=== PATIENT | male | born 1990 | race Caucasian/White ===

== ENCOUNTER 2016-06-09 23:46 | Emergency (ER) | payer SELFPAY ==
--- NOTE | ~2016-06-09 | CT99 ---
[facility] A Service of [facility] RADIOLOGY TEXT RESULTS PATIENT: FOSTER MILLER LOCATION: SED : [birth year] UNIT #: [id number] AGE: [address]: Patrick Wu MD SEX: M ORDER DR: [id number] [address] [address] [id number] E MR#: [id number] Acc #: [id number] NAME: FOSTER MILLER : 1990 SEX: M STUDY DATE/TIME: 06/10/2016 1:30 UNIT: SED ROOM: STUDY DESCRIPTION: CT Maxillofacial Area W Cont Attending Physician: Patrick Wu M.D. Ordering Physician: Patrick Wu M.D. Primary Care Physician: Primary Care Physician No MEDICAL IMAGING REPORT This report is preliminary unless electronic signature is present. EXAM CT maxillofacial with IV contrast COMPARISON None INDICATION 26-year-old male with right-sided forehead swelling of acute onset yesterday morning. TECHNIQUE This CT exam was performed with one or more of the following radiation dose reduction techniques: automatic exposure control, adjustment of mA and/or kV according to patient size, and iterative reconstruction. FINDINGS Axial CT imaging of the facial bones was performed after administration of 100 mL of IV 370. Coronal reformats were constructed. There is mild asymmetric subcutaneous fat stranding over the right frontal bone which may extend minimally down into the right preseptal soft tissues. There is no evidence of associated abscess. There is no subcutaneous gas. Visualized airways widely patent. Visualized intracranial arteries appear within normal limits. The visualized cervical carotid arteries appear within normal limits. No bulky adenopathy within the visualized neck. There is a large mucus retention cyst versus polyp of the left maxillary sinus with a small to moderate mucus retention cyst versus polyp of the right maxillary sinus. Mild mucosal thickening of ethmoid air cells. Visualized mastoid air cells and middle ears are well-aerated. No acute fractures or suspicious osseous lesions. IMPRESSION 1. Subcutaneous fat stranding over the right anterior frontal bone without associated abscess. Findings likely reflect acute STS. [facility] A Service of [facility] RADIOLOGY TEXT RESULTS PATIENT: FOSTER MILLER LOCATION: SED : 92 UNIT #: [id number] AGE: [address]: Patrick Wu MD SEX: M ORDER DR: cellulitis. Findings may extend minimally into the preseptal soft tissues over the right orbit. There is no evidence of intraorbital extension. No subcutaneous gas. 2. Mucus retention cysts versus polyps of the maxillary sinuses. Dictated by... Terence Hair M.D. THIS IS AN ELECTRONICALLY VERIFIED REPORT Terence Hair M.D. at 06/13/2016 8:28 PM Alexis TD: 06/10/2016 09:41 JOB #: [id number] MEDICAL IMAGING REPORT
--- NOTE | ~2016-06-09 | CT71 ---
[facility] A Service [facility] RADIOLOGY TEXT RESULTS PATIENT: FOSTER MILLER LOCATION: SED : [birth year] UNIT #: [id number] AGE: [address]: Patrick Wu MD SEX: M ORDER DR: [id number] [place] [id number] E MR#: [id number] Acc #: [id number] NAME: FOSTER MILLER : 1990 SEX: M STUDY DATE/TIME: 06/10/2016 1:26 UNIT: SED ROOM: STUDY DESCRIPTION: CT Head Wo Contrast Attending Physician: Patrick Wu M.D. Ordering Physician: Patrick Wu M.D. Primary Care Physician: Primary Care Physician No MEDICAL IMAGING REPORT This report is preliminary unless electronic signature is present. EXAM CT head without IV contrast COMPARISON None INDICATION 26-year-old male with headache, blurred vision and dizziness as well as right-sided forehead swelling since this morning. TECHNIQUE This CT exam was performed with one or more of the following radiation dose reduction techniques: automatic exposure control, adjustment of mA and/or kV according to patient size, and iterative reconstruction. FINDINGS There is a small amount of diffuse fat stranding in the subcutaneous tissues overlying the right frontal bone. No evidence of associated organizing fluid collection. There is mild mucosal thickening of the ethmoid air cells and likely within the left maxillary sinus as well, incompletely imaged. Similarly, there is mild mucosal thickening of the sphenoid sinus. There are no paranasal sinus air-fluid levels seen on this exam. Visualized mastoid air cells and middle ears are well-aerated. No acute fractures or suspicious osseous lesions. No focal osseous destruction. Normal cerebral volume. No abnormal extraaxial fluid collection or mass effect. No acute intracranial hemorrhage. No evidence of acute ischemia. IMPRESSION 1. Diffuse fat stranding in the subcutaneous tissues overlying the right frontal bone. No evidence of organizing fluid collection or osteomyelitis. No acute intracranial abnormality. 2. Mild chronic paranasal sinus disease. [facility] A Service [facility] RADIOLOGY TEXT RESULTS PATIENT: FOSTER MILLER LOCATION: SED : [birth year] UNIT #: [id number] AGE: [address]: Patrick Wu MD SEX: M ORDER DR: Dictated by... Terence Hair M.D. THIS IS AN ELECTRONICALLY VERIFIED REPORT Terence Hair M.D. at 06/13/2016 8:46 PM Alexis TD: 06/10/2016 09:32 JOB #: [id number] MEDICAL IMAGING REPORT
[~2016-06-09 23:46] MED LIST: ALBUTEROL17 GM INH; ALPRAZOLAM PO; CIPRO PO; DELTASONE20 MG PO; FLEXERIL10 MG PO; FLOMAX0.4 M1 PO; HYCET 7.5 MG-3473 ML PO; HYDROCODON-ACE1 EAC7 PO; IBUPROFEN800 MG PO; NO MEDICATIONS; PHENERGAN25 M1 PO; PREDNISONE PO; PROMETHAZINE D118 ML PO; ROBAXIN 750750 M1 PO; TRAMADOL HCL50 M1 PO; VOLTAREN50 MG PO; VOLTAREN75 MG PO; ZOFRAN ODT4 MG PO; ZOFRANODT PO
[2016-06-10 00:36] LABS: BASOPHIL% 0.5 % (0-2.5); EOSINOPHIL# 0.3 X10e3 (0-0.7); HEMATOCRIT 46.7 % (38.0-50.0); HEMOGLOBIN 15.9 gm/dL (13.0-16.0); LYMPHOCYTE# 2.2 X10e3 (1.0-3.5); LYMPHOCYTE% 20.5 % (17.0-45.0); MEAN CELL VOLUME 84.4 FL (83-96); MEAN CORPUSCULAR HEMOGLOBIN 28.7 PG (28-34); MEAN PLATELET VOLUME 7.6 FL (6.5-11.5); MONOCYTE# 0.6 X10e3 (0-1.0); MONOCYTE% 6.1 % (3.0-12.0); NEUTROPHIL# 7.4 X10e3 (1.5-7.1); NEUTROPHIL% 69.9 % (40-75); PLATELET COUNT 296 X10e3 (140-420); RED BLOOD COUNT 5.53 X10e (3.90-5.60); RED CELL DISTRIBUTION WIDTH 12.7 % (11.0-15.5); WHITE BLOOD COUNT 10.5 X10e3 (4.0-10.5)
[2016-06-10 00:37] LABS: DIFF IND NO
[2016-06-10 00:44] LABS: PROTHROMBIN TIME (PATIENT) 11.6 SECONDS (9.5-12.4)
[2016-06-10 00:51] LABS: BLOOD UREA NITROGEN 16 mg/dL (9-23); BUN/CREATININE RATIO 14.54; CARBON DIOXIDE 25 mmol/L (22-31); CHLORIDE 104 mmol/L (100-111); CREATININE SERUM 1.1 mg/dL (0.6-1.4); GLOM FILT RATE Estimated ABOVE60 mL/min (>60); GLUCOSE FASTING 92 mg/dL (70-110); POTASSIUM 3.9 mmol/L (3.5-5.1); SODIUM 137 mmol/L (135-145)
== END 2016-06-10 03:57 | disposition home or self-care (01) ==
LOC: SED 23:46
PROVIDERS: Emergency Medicine
DX: L03.213 Periorbital cellulitis (principal); G47.33 Obstructive sleep apnea (adult) (pediatric); F17.200 Nicotine dependence, unspecified, uncomplicated
CPT/HCPCS: 36415; 70450; 70487; 80048; 85025; 85610; 85730; 87040; 96365; 96375; 99284; J0780; J1200; J1885; Q9967

== ENCOUNTER 2016-06-13 23:55 | Emergency (ER) | payer SELFPAY ==
--- NOTE | ~2016-06-13 | CT99 ---
[facility]. [facility] A Service [facility] RADIOLOGY TEXT RESULTS PATIENT: FOSTER MILLER LOCATION: SED : [birth year] UNIT #: [id number] AGE: [address]: Patrick Wu MD SEX: M ORDER DR: [id number] [address] [address] [id number] E MR#: [id number] Acc #: [id number] NAME: FOSTER MILLER : 1990 SEX: M STUDY DATE/TIME: 06/14/2016 1:41 UNIT: SED ROOM: STUDY DESCRIPTION: CT Maxillofacial Area W Cont Attending Physician: Patrick Wu M.D. Ordering Physician: Patrick Wu M.D. Primary Care Physician: No Primary Care Physician MEDICAL IMAGING REPORT This report is preliminary unless electronic signature is present. EXAM Maxillofacial CT with contrast HISTORY Facial cellulitis, onset approximately 1 week ago. Worsening symptoms over the forehead. Evaluate for developing facial abscess. COMPARISON Comparison scan 06/10/2016. TECHNIQUE Axial images were obtained with contrast. 100 mL of Isovue was used. This CT exam was performed with one or more of the following radiation dose reduction techniques: automatic exposure control, adjustment of mA and/or kV according to patient size, and iterative reconstruction. FINDINGS Subcutaneous edema is again seen over the right frontal region. It extends down to the nasal orbital junction. There is no evidence of an abscess. There is no evidence of inflammatory change behind the globes. No sinus air-fluid levels are seen but chronic inflammatory sinus changes are again noted. Cervical lymph nodes are seen bilaterally. There are level 2 nodes near the submandibular glands that are mildly prominent but unchanged in size from the previous exam. IMPRESSION Findings consistent with right frontal cellulitis. No evidence of developing abscess or bony involvement. No evidence of acute sinusitis. No evidence of inflammatory change behind the globes and the orbits. No abscess is identified. Overall, no significant worsening seen since the previous examination. Probable reactive cervical nodes are seen but they are unchanged as well. [facility] A Service [facility] RADIOLOGY TEXT RESULTS PATIENT: FOSTER MILLER LOCATION: SED : [birth year] UNIT #: [id number] AGE: [address]: Patrick Wu MD SEX: M ORDER DR: Dictated by... Eric Carson M.D. THIS IS AN ELECTRONICALLY VERIFIED REPORT Eric Carson M.D. at 06/14/2016 3:27 PM DAVID/golden TD: 06/14/2016 12:48 JOB #: [id number] MEDICAL IMAGING REPORT
--- NOTE | ~2016-06-13 | CT71 ---
[facility] A Service of [facility] & [facility] RADIOLOGY TEXT RESULTS PATIENT: FOSTER MILLER LOCATION: SED : [birth year] UNIT #: [id number] AGE: [address]: Patrick Wu MD SEX: M ORDER DR: [id number] [address] [address] [id number] E MR#: [id number] Acc #: [id number] NAME: FOSTER MILLER : 1990 SEX: M STUDY DATE/TIME: 06/14/2016 1:38 UNIT: SED ROOM: STUDY DESCRIPTION: CT Head Wo Contrast Attending Physician: Patrick Wu M.D. Ordering Physician: Patrick Wu M.D. Primary Care Physician: Primary Care Physician No MEDICAL IMAGING REPORT This report is preliminary unless electronic signature is present. EXAM CT head without IV contrast COMPARISON June 10, 2016 INDICATIONS 26-year-old male with dizziness and generalized weakness as well as frontal headache for 1 week. Cellulitis in the frontal location, now extending to the right eyebrow. TECHNIQUE This CT exam was performed with one or more of the following radiation dose reduction techniques: automatic exposure control, adjustment of mA and/or kV according to patient size, and iterative reconstruction. FINDINGS There is grossly stable fat stranding in the soft tissues anterior to the right frontal bone, perhaps extending minimally into the right preseptal soft tissues. No evidence of intraorbital extension. Overall appearance is stable. No subcutaneous gas. No evidence of osseous destruction. No acute fractures or suspicious osseous lesions. Mastoid air cells and middle ears are well-aerated. There is chronic-appearing mucosal disease of the left maxillary sinus with mild mucosal thickening of the ethmoid air cells and sphenoid sinus, likely chronic. No air-fluid levels in the paranasal sinuses. Normal cerebral volume. No mass effect. No abnormal extraaxial fluid collection. No evidence of acute intracranial hemorrhage or ischemia. IMPRESSION 1. Stable fat stranding over the right frontal bone as compared to June 10, 2016. This may minimally extend into the preseptal soft tissues, incompletely evaluated on this exam. The appearance again [facility] A Service of [facility] & [facility] RADIOLOGY TEXT RESULTS PATIENT: FOSTER MILLER LOCATION: SED : [birth year] UNIT #: [id number] AGE: [address]: Patrick Wu MD SEX: M ORDER DR: is stable. No evidence of intraorbital extension. There are chronic-appearing mild paranasal sinus disease. 2. No acute intracranial abnormality. Dictated by... Terence Hair M.D. THIS IS AN ELECTRONICALLY VERIFIED REPORT Terence Hair M.D. at 06/18/2016 10:54 AM Alexis TD: 06/14/2016 08:26 JOB #: [id number] MEDICAL IMAGING REPORT
[2016-06-14 00:48] LABS: BASOPHIL% 0.3 % (0-2.5); DIFF IND NO; EOSINOPHIL# 0.1 X10e3 (0-0.7); EOSINOPHIL% 1.3 % (0.0-7.0); HEMATOCRIT 45.8 % (38.0-50.0); HEMOGLOBIN 15.6 gm/dL (13.0-16.0); LYMPHOCYTE# 0.6 X10e3 (1.0-3.5); LYMPHOCYTE% 10.2 % (17.0-45.0); MEAN CELL VOLUME 84.2 FL (83-96); MEAN CORPUSCULAR HEMOGLOBIN 28.8 PG (28-34); MEAN CORPUSCULAR HGB CONC 34.2 g/dL (30-36); MEAN PLATELET VOLUME 7.6 FL (6.5-11.5); MONOCYTE# 0.8 X10e3 (0-1.0); MONOCYTE% 12.4 % (3.0-12.0); NEUTROPHIL# 4.8 X10e3 (1.5-7.1); NEUTROPHIL% 75.8 % (40-75); PLATELET COUNT 254 X10e3 (140-420); RED BLOOD COUNT 5.44 X10e (3.90-5.60); RED CELL DISTRIBUTION WIDTH 12.3 % (11.0-15.5); WHITE BLOOD COUNT 6.4 X10e3 (4.0-10.5)
[2016-06-14 01:02] LABS: BLOOD UREA NITROGEN 10 mg/dL (9-23); CALCIUM SERUM 8.8 mg/dL (8.4-10.2); CARBON DIOXIDE 25 mmol/L (22-31); CHLORIDE 99 mmol/L (100-111); GLOM FILT RATE Estimated ABOVE60 mL/min (>60); GLUCOSE FASTING 88 mg/dL (70-110); POTASSIUM 3.6 mmol/L (3.5-5.1); SODIUM 133 mmol/L (135-145)
== END 2016-06-14 03:38 | disposition home or self-care (01) ==
LOC: SED 23:55
PROVIDERS: Emergency Medicine
DX: R51 Headache (principal); F17.210 Nicotine dependence, cigarettes, uncomplicated
CPT/HCPCS: 36415; 70450; 70487; 80048; 85025; 87040; 96361; 96365; 96366; 96375; 99284; C9113; J0780; J1200; J1885; J2060; J3370; Q9967

== ENCOUNTER 2016-06-16 12:32 | Emergency (ER) | payer SELFPAY ==
[2016-06-16 13:30] LABS: BASOPHIL% 0.2 % (0-2.5); EOSINOPHIL# 0.2 X10e3 (0-0.7); EOSINOPHIL% 4.5 % (0.0-7.0); HEMATOCRIT 47.3 % (38.0-50.0); HEMOGLOBIN 16.1 gm/dL (13.0-16.0); LYMPHOCYTE# 1.3 X10e3 (1.0-3.5); LYMPHOCYTE% 29.2 % (17.0-45.0); MEAN CELL VOLUME 83.7 FL (83-96); MEAN CORPUSCULAR HEMOGLOBIN 28.6 PG (28-34); MEAN CORPUSCULAR HGB CONC 34.1 g/dL (30-36); MEAN PLATELET VOLUME 7.8 FL (6.5-11.5); MONOCYTE# 0.8 X10e3 (0-1.0); MONOCYTE% 17.5 % (3.0-12.0); NEUTROPHIL# 2.2 X10e3 (1.5-7.1); NEUTROPHIL% 48.6 % (40-75); PLATELET COUNT 227 X10e3 (140-420); RED BLOOD COUNT 5.65 X10e (3.90-5.60); RED CELL DISTRIBUTION WIDTH 12.7 % (11.0-15.5); WHITE BLOOD COUNT 4.4 X10e3 (4.0-10.5)
[2016-06-16 13:35] LABS: DIFF IND NO
[2016-06-16 13:50] LABS: INFLUENZA A NEG (NEG); INFLUENZA B NEG (NEG)
[2016-06-16 14:05] LABS: ALBUMIN SERUM 4.3 g/dL (3.5-5.0); ALKALINE PHOSPHATASE 68 U/L (32-92); ALT (SGPT) 21 U/L (10-40); AST (SGOT) 25 U/L (10-42); BILIRUBIN,TOTAL 0.4 mg/dL (0.2-2.0); BLOOD UREA NITROGEN 15 mg/dL (9-23); BUN/CREATININE RATIO 16.66; CALCIUM SERUM 8.4 mg/dL (8.4-10.2); CARBON DIOXIDE 23 mmol/L (22-31); CHLORIDE 109 mmol/L (100-111); CREATININE SERUM 0.9 mg/dL (0.6-1.4); GLOM FILT RATE Estimated ABOVE60 mL/min (>60); GLUCOSE FASTING 111 mg/dL (70-110); POTASSIUM 3.5 mmol/L (3.5-5.1); SODIUM 140 mmol/L (135-145)
[2016-06-16 15:16] LABS: CSF TUBE NUMBER 1; CSF XANTHACHROMIC NO; GLUCOSE-CSF 71 mg/dL (50-80); PROTEIN-CSF 29 mg/dL (15-45)
[2016-06-16 15:17] LABS: CSF APPEARANCE CLEAR (CLEAR); CSF LYMPHOCYTE 88 %; CSF MONOCYTE 12 %; CSF RBC 1 CMM (0); CSF TUBE NUMBER 4; CSF WBC 4 CMM (0-8)
[2016-06-16 15:18] LABS: CSF APPEARANCE CLEAR (CLEAR); CSF LYMPHOCYTE 100 %; CSF RBC 0 CMM (0); CSF WBC 1 CMM (0-8); CSF XANTHACHROMIC NO
[2016-06-16 15:24] LABS: CSF NEUTROPHIL 0 %
== END 2016-06-16 19:45 ==
LOC: SED 12:32
PROVIDERS: Emergency Medicine
DX: A87.9 Viral meningitis, unspecified (principal); Z98.890 Other specified postprocedural states
CPT/HCPCS: 62270; 80053; 82945; 83605; 84157; 85025; 87070; 87205; 87651; 87804; 89051; 96361; 96374; 96375; 99285; J0696; J1100; J2060; J2270; J3370

== ENCOUNTER 2016-08-07 23:08 | Emergency (ER) | payer OTHER | END 2016-08-08 00:58 | disposition home or self-care (01) | LOC: SED 23:08 | DX: R22.0 Localized swelling, mass and lump, head (principal); F17.200 Nicotine dependence, unspecified, uncomplicated | CPT/HCPCS: 99282 ==

== ENCOUNTER 2016-12-01 04:58 | Emergency (ER) | payer OTHER ==
[~2016-12-01] VITALS: Ht 167.6 cm; Wt 99.8 kg
--- NOTE | ~2016-12-01 | CR7 ---
[facility]. [facility] A Service of [facility] & [facility] RADIOLOGY TEXT RESULTS PATIENT: FOSTER MILLER LOCATION: SED : [birth year] UNIT #: [id number] AGE: [address]: Sal Avila MD SEX: M ORDER DR: [id number] [place] [id number] E MR#: [id number] Acc #: [id number] NAME: FOSTER MILLER : 1990 SEX: M STUDY DATE/TIME: 12/01/2016 5:59 UNIT: SED ROOM: STUDY DESCRIPTION: CR Abdomen Single AP View Attending Physician: Sal Avila M.D. Ordering Physician: Rudy Young M.D. Primary Care Physician: Primary Care Physician No MEDICAL IMAGING REPORT This report is preliminary unless electronic signature is present. EXAM Abdomen INDICATION Abdominal pain and vomiting starting this morning. COMPARISON There is no comparison. FINDINGS A supine view of the abdomen was obtained. The bowel gas pattern is normal. The bones are normal. No mass or stone is visible. IMPRESSION Normal supine abdomen image. Dictated by... Cristo Gomez M.D. THIS IS AN ELECTRONICALLY VERIFIED REPORT Cristo Gomez M.D. at 12/01/2016 12:12 PM Fina TD: 12/01/2016 10:18 JOB #: [id number] MEDICAL IMAGING REPORT Page 1 of 1
--- NOTE | ~2016-12-01 | CT2 ---
[facility] A Service [facility] RADIOLOGY TEXT RESULTS PATIENT: FOSTER MILLER LOCATION: SED : [birth year] UNIT #: [id number] AGE: [address]: Sal Avila MD SEX: M ORDER DR: [id number] [address] [address] [id number] E MR#: [id number] Acc #: [id number] NAME: FOSTER MILLER : 1990 SEX: M STUDY DATE/TIME: 12/01/2016 7:31 UNIT: SED ROOM: STUDY DESCRIPTION: CT Abd and Pelv W Cont Attending Physician: Sal Avila M.D. Ordering Physician: Rudy Young M.D. Primary Care Physician: Primary Care Physician No MEDICAL IMAGING REPORT This report is preliminary unless electronic signature is present. EXAM CT of the abdomen and pelvis with contrast HISTORY Vomiting blood. Mid abdomen pain starting 2 hours ago. COMPARISON 09/22/2015 TECHNIQUE The patient was given 100 mL of Isovue 370 and axial 5.0 mm images were obtained through the abdomen and pelvis. Sagittal and coronal reconstructions were generated. This CT exam was performed with one or more of the following radiation dose reduction techniques: automatic exposure control, adjustment of mA and/or kV according to patient size, and iterative reconstruction. FINDINGS The lung bases are clear. The liver, gallbladder, spleen, pancreas, adrenal glands and kidneys are normal in appearance. The aorta is normal in size and there is no adenopathy. The bowel, including the appendix, appears normal. The bladder and prostate gland are normal. There are bilateral pars defects at L5. There is no subluxation. The bones are otherwise normal. IMPRESSION 1. Normal appendix. 2. Bilateral L5 pars defects without subluxation. 3. Otherwise normal. [facility] A Service [facility] RADIOLOGY TEXT RESULTS PATIENT: FOSTER MILLER LOCATION: SED : [birth year] UNIT #: [id number] AGE: [address]: Sal Avila MD SEX: M ORDER DR: Dictated by... Cristo Gomez M.D. THIS IS AN ELECTRONICALLY VERIFIED REPORT Cristo Gomez M.D. at 12/01/2016 12:12 PM Fina TD: 12/01/2016 10:58 JOB #: [id number] MEDICAL IMAGING REPORT Page 1 of 1
[2016-12-01 06:42] LABS: BASOPHIL# 0.1 X10e3 (0-0.3); BASOPHIL% 0.9 % (0-2.5); DIFF IND NO; EOSINOPHIL# 0.2 X10e3 (0-0.7); EOSINOPHIL% 2.5 % (0.0-7.0); HEMATOCRIT 45.9 % (38.0-50.0); HEMOGLOBIN 15.9 gm/dL (13.0-16.0); LYMPHOCYTE# 2.6 X10e3 (1.0-3.5); LYMPHOCYTE% 31.2 % (17.0-45.0); MEAN CELL VOLUME 81.8 FL (83-96); MEAN CORPUSCULAR HEMOGLOBIN 28.3 PG (28-34); MEAN CORPUSCULAR HGB CONC 34.5 g/dL (30-36); MEAN PLATELET VOLUME 7.6 FL (6.5-11.5); MONOCYTE# 0.8 X10e3 (0-1.0); MONOCYTE% 9.4 % (3.0-12.0); NEUTROPHIL# 4.6 X10e3 (1.5-7.1); PLATELET COUNT 261 X10e3 (140-420); RED BLOOD COUNT 5.61 X10e (3.90-5.60); RED CELL DISTRIBUTION WIDTH 12.3 % (11.0-15.5); WHITE BLOOD COUNT 8.2 X10e3 (4.0-10.5)
[2016-12-01 07:02] LABS: ALBUMIN SERUM 4.4 g/dL (3.5-5.0); BILIRUBIN,TOTAL 0.6 mg/dL (0.2-2.0); BUN/CREATININE RATIO 17.77; CREATININE SERUM 0.9 mg/dL (0.6-1.4); GLOM FILT RATE Estimated 119.1 mL/min (>60); POTASSIUM 3.8 mmol/L (3.5-5.1); PROTEIN TOTAL SERUM 7.4 g/dL (6.0-8.3)
== END 2016-12-01 08:15 | disposition home or self-care (01) ==
LOC: SED 04:58
PROVIDERS: Emergency Medicine
DX: R10.13 Epigastric pain (principal); R11.2 Nausea with vomiting, unspecified; F17.210 Nicotine dependence, cigarettes, uncomplicated
CPT/HCPCS: 36415; 74000; 74177; 80053; 83690; 85025; 86677; 96374; 99284; C9113; Q9967